=== PATIENT | female | born 1990 | race Caucasian/White ===

== ENCOUNTER 2018-10-04 10:34 | Inpatient (IN) ==
--- NOTE | 2018-10-04 11:04 | HP ---
Chief Complaint - Chief Complaint Date of Service: 10/04/18 Chief Complaint: leaking fluid and back pain History of Present Illness: 28 yo, , at 38.5 weeks today. LMP: 01/05/18 EDC 10/13/18 per u/s 03/08/18 (8.5 w) complained of leaking fluid since midnight. felt a gush initially, changed 5 times so far. Clear fluid. has back pain, no contractions. is complicated by anemia on iron and vit C. A positive. Rubella immune. GBS negative (09/13/18). presentation: cephalic by Leopald and vaginal exam. cervix 3 cm, 60% and -3. heart rate: reassuring. 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 States she has never had a colpo. Anxiety Onset Date: ~09/09/15 Anemia Onset Date: ~2011 with Chlamydia Onset Date: ~12/20/11 treated Depression Onset Date: Unknown on medication at age 13/14 for a short time. No change noted w/ medication. Went through counseling. Pre-eclampsia Onset Date: ~02/2012 induced hypertension Onset Date: ~01/2012 Surgical History: Surgical History (Last Reviewed 06/01/18 @ 15:01 by Bria Hector) History of tonsillectomy Onset Date: ~1998 Family History: Family History (Last Reviewed 06/01/18 @ 15:01 by Bria Hector) Father Alive and well Grandfather , paternal Myocardial infarction Mother Pituitary tumor Rheumatoid arthritis Social History: Preferred Language [place] Smoking Status Never smoker Abuse History No History of abuse Psych History Hx of Depression (Last Updated 10/04/18 @ 10:52 by Sepideh Jarvis MD) denied tobacco, alcohol or drug use. Review Of Systems (GEN) - Review of Systems Genitourinary: Present: Other - leaking fluid Musculoskeletal: Present: Back Pain Misc: All systems neg except as marked Allergies/Adverse Reactions: Allergies Allergy/AdvReac Type Severity Reaction Status Date / Time No Known Allergies Allergy Verified 10/04/18 10:14 Home Medications: HOME MEDICATIONS Ferrous Sulfate [Iron] 325 mg PO HS 09/17/18 [Last Taken 09/16/18 21:00] Pnv95/Iron Fum/Folic Acid [ Vitamin Tablet] 1 ea PO HS 09/17/18 [Last Taken 09/16/18 21:00] Exam - Exam Vital Signs: BP 116/62 P 72 R 16 O2 sat 99% room air T 36.1 Constitutional: Present: Alert, Oriented x3, Cooperative Neck: Present: supple Back Exam: Present: no CVA tenderness Respiratory: Present: lungs clear, normal breath sounds, no respiratory distress Cardiovascular/Chest: Present: normal peripheral pulses, regular rate, rhythm, no murmur Abdomen: Present: soft, nontender, nondistended, other - gravid, fundal height 34, heart rate 128 /Rectal: Present: Other - amniotest positive. vaginal fluid pooling, confirming rupture of membrane. cervix dilated to 3 cm Extremity: Present: normal range of motion, no pedal edema, no calf tenderness Skin Exam: Present: normal color, warm/dry, no cyanosis Appearance: Present: appropriate appearance Eye contact: Present: cooperative, good eye contact, normal speech Assessment/Plan - Narrative Narrative: A: at 38.5 weeks with SROM, 3 cm, GBS negative. Plan: admit for induction of labor with Dr. Julian routine labor care. epidural if needed. Sepideh Jarvis MD
[2018-10-04] MEDS ORDERED: RINGER'S SOLUTION,LACTATED 1,000 ML IV ONE (11:09)
[2018-10-04] MEDS ORDERED: OXYTOCIN/DEXTROSE 5%-WATER 30 UNITS/500 ML BAG IV ONE ×2 (11:09→16:55)
[2018-10-04] MEDS ORDERED: DEXTROSE 5%-LACTATED RINGERS 1,000 ML IV PRN (11:09)
[2018-10-04] MEDS ORDERED: NALOXONE HCL 1 MG/1 ML SYRG IV PRN (12:59)
[2018-10-04] MEDS ORDERED: ONDANSETRON HCL/PF 2 MG/ML VIAL IV PRN (12:59)
[2018-10-04] MEDS ORDERED: BUPIVACAINE HCL/0.9 % NACL/PF 250 ML EP PRN (12:59)
[2018-10-04] MEDS ORDERED: fentaNYL CITRATE/PF 50 MCG/ML AMPUL IT SCH (13:00)
--- NOTE | 2018-10-04 13:52 | ANES ---
Anesthesia Pre Procedure Eval Vitals/Labs: Last Vital Signs Temp 37.0 C 10/04/18 10:55 Pulse 84 10/04/18 10:55 Resp 20 10/04/18 10:55 BP 133/71 10/04/18 10:55 Pulse Ox 97 10/04/18 10:55 HOME MEDICATIONS Ferrous Sulfate [Iron] 325 mg PO HS 09/17/18 [Last Taken 10/03/18 17:00] Pnv95/Iron Fum/Folic Acid [ Vitamin Tablet] 1 ea PO HS 09/17/18 [Last Taken 09/16/18 21:00] Allergies/Adverse Reactions: Allergies Allergy/AdvReac Type Severity Reaction Status Date / Time No Known Allergies Allergy Verified 10/04/18 10:14 - Planned Procedure Planned Procedure: Labor epidural Medication List Reviewed:: Yes Allergies Verified: Yes Medical History (Last Updated 07/21/18 @ 11:19 by Olivia Ng RN) Anemia affecting (Acute) Onset Date: 07/20/18 Abnormal Pap smear of cervix Onset Date: Unknown 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 States she has never had a colpo. Anxiety Onset Date: ~09/09/15 Anemia Onset Date: ~2011 with Chlamydia Onset Date: ~12/20/11 treated Depression Onset Date: Unknown on medication at age 13/14 for a short time. No change noted w/ medication. Went through counseling. Pre-eclampsia Onset Date: ~02/2012 induced hypertension Onset Date: ~01/2012 Surgical History (Last Reviewed 06/01/18 @ 15:01 by Bria Hector) History of tonsillectomy Onset Date: ~1998 Family History (Last Reviewed 06/01/18 @ 15:01 by Bria Hector) Father Alive and well Grandfather , paternal Myocardial infarction Mother Pituitary tumor Rheumatoid arthritis - Anesthesia Assessment and Plan ASA Class: PS, II Anesthesia Type Plan: Epidural
[2018-10-04] MEDS ORDERED: BUPIVACAINE HCL/PF 30 ML VIAL EP SCH (14:00)
--- NOTE | 2018-10-04 14:18 | ANES ---
Anesthesia Procedure Note Procedure Note: ANESTHESIA PROCEDURE NOTE Date of Procedure: 10/04/2018. Time of procedure: 1400. Performed by: Yuriy Baca CRNA Torch Burner: None. Preprocedure diagnosis: Active labor. Post procedure diagnosis: Same. Procedure: Insertion of labor epidural. Indications: The patient is a 28 -year-old female in active labor requesting labor epidural for pain management. Findings: See below. Details of the procedure: The patient was placed in a sitting position. DuraPrep as well as Betadine swabs X3 was applied to the patient's back. Patient was then draped in a sterile fashion. Lidocaine 1% was infiltrated to the skin and subcutaneous tissues at the level of the L3-4 interspace. The epidural space was identified using a 18-gauge Tuohy needle with [id number] technique. Epidural catheter was inserted to a depth of 11 centimeters at skin. Negative test dose was elicited using 3 mL of 1.5% preservative-free lidocaine plus epinephrine 1 200,000. The epidural catheter was then taped and secured in place. A loading dose of 8 mL of 0.25% preservative-free bupivacaine was administered to the epidural catheter after negative aspiration for blood and CSF. EBL: Minimal. Fluids: N/A. Specimen: N/A. Post procedure condition: The patient tolerated the procedure well. No complications were noted. Thank you for this consultation. Yuriy Baca CRNA
--- NOTE | 2018-10-04 14:19 | ANES ---
Post Anesthesia Assessment - Vital Signs Vitals: Last Vital Signs Temp 37.0 C 10/04/18 10:55 Pulse 84 10/04/18 10:55 Resp 20 10/04/18 10:55 BP 133/71 10/04/18 10:55 Pulse Ox 97 10/04/18 10:55 Airway Patency: Normal - Mental Status Level Of Consciousness: Awake - N/V Assessment Nausea/Vomiting Presence: None Dehydration:: No
[2018-10-04] MEDS ORDERED: GLYCERIN/WITCH HAZEL LEAF 40 APPL BOX TP PRN (16:55)
[2018-10-04] MEDS ORDERED: HYDROCORTISONE 30 APPL TUBE TP PRN (16:55)
[2018-10-04] MEDS ORDERED: BISACODYL 10 MG SUPP.RECT RC PRN (16:55)
[2018-10-04] MEDS ORDERED: BENZOCAINE/MENTHOL 81 SPRAY CAN TP PRN (16:55)
[2018-10-04] MEDS ORDERED: SENNOSIDES 8.6 MG TABLET PO PRN (16:55)
[2018-10-04] MEDS ORDERED: oxyCODONE HCL/ACETAMINOPHEN 1 TAB TABLET PO PRN (16:55)
--- NOTE | 2018-10-04 17:01 | OR ---
Operative Report - Dictated Report Narrative: Spontaneous vaginal delivery of viable vigorous crying male at 1627 on 10/04/2018 with Apgars 7 and 9, weighing 3248 g in ROP position. 1-2 minute deceleration in the 70s just prior to delivery with a loop of cord noted below the baby's chin with delivery of head. Cord clamping delayed approximately 1 minute Placenta delivered complete, intact, with three vessel cord Estimated blood loss: less than 50 ml Anesthesia: epidural Lacerations: None History for MU Definition: * The number of deliveries resulting in a live the patient experienced prior to current hospitalization * The previous delivery of live twins or any live multiple gestation is considered one live event. *If primagravida or nulliparous is documented select zero for the number of previous live births. Live Events: 2
[2018-10-04] MEDS: oxyCODONE HCL/ACETAMINOPHEN 1 TAB TABLET PO PRN (18:09)
[2018-10-04] MEDS: IBUPROFEN 800 MG TABLET PO PRN (18:10)
[2018-10-04] MEDS: DOCUSATE SODIUM 100 MG CAPSULE PO SCH (21:33)
[2018-10-04] MEDS: FERROUS SULFATE 325 MG TABLET PO SCH (21:33)
[2018-10-05] MEDS: PRENATAL VITS96/IRON FUM/FOLIC 1 TAB TABLET PO SCH ×2 (02:12→20:56)
[2018-10-05] MEDS: oxyCODONE HCL/ACETAMINOPHEN 1 TAB TABLET PO PRN ×4 (04:10→21:38)
[2018-10-05] MEDS: IBUPROFEN 800 MG TABLET PO PRN ×3 (04:10→21:37)
[2018-10-05] MEDS: DOCUSATE SODIUM 100 MG CAPSULE PO SCH ×2 (08:34→20:56)
--- NOTE | 2018-10-05 12:43 | PN ---
Subjective - Date and Time Seen Date: 10/05/18 Time: 12:43 Objective - Vitals Vitals: Last Vital Signs Temp 36.1 C 10/05/18 06:45 Pulse 77 10/05/18 06:45 Resp 18 10/05/18 06:45 BP 125/86 10/05/18 06:45 Pulse Ox 98 10/05/18 06:45 Patient denies complaints. Lochia wnl Abdomen - soft, nontender Uterus - firm, at umbilicus - 1 No calf tenderness Impression: day #1 - s/p spontaneous vaginal delivery. Plan: Continue routine care Cauti Physician Documentation - Urinary Catheter Management Urethral ([facility]) Date of Insertion: 10/04/18 Time of Insertion: 14:30 Date of Removal: 10/04/18 Time of Removal: 16:20
[2018-10-05] MEDS: FERROUS SULFATE 325 MG TABLET PO SCH (20:56)
[2018-10-06] MEDS: DOCUSATE SODIUM 100 MG CAPSULE PO SCH (08:41)
[2018-10-06] MEDS: oxyCODONE HCL/ACETAMINOPHEN 1 TAB TABLET PO PRN (08:41)
[2018-10-06] MEDS: IBUPROFEN 800 MG TABLET PO PRN (08:41)
--- NOTE | 2018-10-06 10:04 | PN ---
Subjective - Date and Time Seen Date: 10/06/18 Time: 10:04 Objective - Vitals Vitals: Last Vital Signs Temp 36.2 C 10/05/18 23:56 Pulse 61 10/05/18 23:56 Resp 16 10/05/18 18:23 BP 118/62 10/05/18 23:56 Pulse Ox 98 10/05/18 23:56 Patient denies complaints. Lochia wnl Abdomen - soft, nontender Uterus - firm, at umbilicus - 2 No calf tenderness Impression: day #2 - s/p spontaneous vaginal delivery. Plan: Routine discharge instructions. Follow-up with Dr. Jarvis in the office in 3-4 weeks. Cauti Physician Documentation - Urinary Catheter Management Urethral (Graham) Date of Insertion: 10/04/18 Time of Insertion: 14:30 Date of Removal: 10/04/18 Time of Removal: 16:20
[2018-10-06 11:35] VITALS: BP 111/58
== END 2018-10-06 14:40 | disposition home or self-care (01) | DRG 807 ==
LOC: OB 10:34
PROVIDERS: ADMIT Obstetrics & Gynecology; ATTEND Obstetrics & Gynecology
CPT/HCPCS: 59025